=== PATIENT | female | born 1990 | race Caucasian/White ===

== ENCOUNTER 2016-12-06 22:15 | Emergency (ER) | payer OTHER ==
[~2016-12-06] VITALS: Ht 162.6 cm; Wt 97.0 kg
[~2016-12-06 22:15] MED LIST: AMOX875T PO; POLY10O LEFT EYE
[2016-12-06 22:24] VITALS: BP 122/85; PULSE 90; RESP 16; TEMP 98.3; O2SAT 100
--- NOTE | 2016-12-06 23:22 | RADHPO ---
EXAM DATE/TIME: 12/06/2016 23:07 [place] COMPARISON: No previous studies available for comparison. INDICATIONS : Fall. Left foot pain. MEDICAL HISTORY : None. SURGICAL HISTORY : None. ENCOUNTER: Initial ACUITY: 1 day PAIN SCORE: 6/10 LOCATION: Left lateral FINDINGS: Three view examination of the left foot demonstrates no soft tissue swelling, dislocation, or fractur e. The tarsal bones appear intact. The interphalangeal and metatarsophalangeal joints are intact. The calcaneus is intact. Bony mineralization is normal. CONCLUSION: 1. Negative examination of the foot. Wesly Ruelas MD on December 06, 2016 at 23:20 Board Certified Radiologist. This report was verified electronically.
[2016-12-06] MEDS ORDERED: ACETAMINOPHEN 325 MG TAB PO ONE (23:30)
--- NOTE | 2016-12-06 23:33 | PD ---
HPI Chief Complaint: Fall Time Seen by Provider: 23:26 Travel History International Travel<30 days: No Contact w/Intl Traveler<30days: No Traveled to known affect area: No History of Present Illness HPI 26-year-old female presents to the emergency department by private transportation for evaluation of left foot injury. According the patient at 5: 29 today while at school at child tripped over her foot causing her to fall twisting her left foot. Patient denies other injury except for superficial abrasion to the left knee. Patient does not report hitting her head having loss of consciousness neck injury back injury chest injury abdominal injury or other extremity injury. Patient's tetanus status is current. Patient has taken no medications for the pain. Patient typically takes Tylenol for pain but was on the medication. Patient rates pain 8/10 intensity. PFSH Past Medical History Narrative Medical ; no tobacco use; nursing notes reviewed Medical History: Denies Significant Hx Diminished Hearing: No Immunizations Current: Yes Tetanus Vaccination: < 5 Years Influenza Vaccination: No ?: Not LMP: 11/17/16 : 2 Para: 1 Miscarriage: 0 : 0 Past Surgical History Section: Yes (X's 2) Social History Alcohol Use: No Tobacco Use: No Substance Use: No Allergies-Medications (Allergen,Severity, Reaction): Coded Allergies: Sulfa (Verified Allergy, Severe, Redness, swelling, 12/06/16) Reported Meds & Prescriptions Reported Meds & Active Scripts Active No Active Prescriptions or Reported Medications Review of Systems HENT: No: Headaches, Neck Pain Cardiovascular: No: Chest Pain or Discomfort Gastrointestinal: No: Abdominal Pain Musculoskeletal: Positive: Pain (foot) Physical Exam Narrative GENERAL: Well-developed well-nourished female in no acute distress no respiratory distress MUSCULOSKELETAL: No cyanosis, or edema. Provisional perforation to the left knee otherwise exam unremarkable distally attention left foot tenderness to palpation across the dorsum of the foot without erythema or ecchymosis abrasion or laceration capillary refill brisk and less than 2 seconds per digit dorsalis pedis pulses 2+ to palpation pain is noted with dorsiflexion or plantarflexion but ankle is nontender and no deformity also no soft tissue swelling noted. Data Data Last Documented VS Vital Signs Date Time Temp Pulse Resp B/P Pulse Ox O2 Delivery O2 Flow Rate FiO2 5/1/17 22:24 98.3 90 16 122/85 100 Orders Foot, Complete ([id number]) (12/06/16 22:54) Ice/Cold Pack (12/06/16 22:54) MDM Medical Decision Making Medical Screen Exam Complete: Yes Emergency Medical Condition: Yes Medical Record Reviewed: Yes Differential Diagnosis Sprain strain subluxation fracture Narrative Course Imaging study ordered X-ray reveals no acute bony abnormality or fracture Padded Ramesh and crutches supplied to patient and patient given Tylenol 650 mg times one dose Diagnosis Primary Impression: Sprain of foot, left Qualified Code: S93.602A - Sprain of foot, left, initial encounter Referrals: Orthopaedic Surgeon as needed Primary Care Physician call for appointment Patient Instructions: General Instructions Scripts No Active Prescriptions or Reported Meds Disposition: 01 DISCHARGE HOME Condition: Stable Shiela Davis MD December 06, 2016 23:33
== END 2016-12-07 00:08 | disposition home or self-care (01) ==
LOC: PHED 22:15 → PHEFT 12-07 00:08
DX: S93.602A Unspecified sprain of left foot, initial encounter (principal); W01.0XXA Fall on same level from slipping, tripping and stumbling without subsequent striking against object, initial encounter; Y92.219 Unspecified school as the place of occurrence of the external cause
CPT/HCPCS: 73630; 99283; E0113